=== PATIENT | male | born 1980 | race Two or more races ===

== ENCOUNTER 2020-08-19 14:21 | Emergency (ER) | payer SELFPAY ==
[~2020-08-19] VITALS: Ht 170.2 cm; Wt 80.0 kg
--- NOTE | 2020-08-19 14:36 | NUR ---
BIB [facility] FROM [facility]. PT HAD SEIZURE, PER SECURITY LASTED 20 SEC. PT STATES COMPLIANT WITH KEPPRA. ETOH YESTERDAY. DENIES TRAUMA. 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 CALL LIGHT IN REACH. SEIZURE PRECAUTIONS IN PLACE.
[2020-08-19] MEDS ORDERED: THIAMINE 100MG TABLET ONE (14:48)
[2020-08-19] MEDS ORDERED: THIAMINE 100MG TABLET PO ONE (15:00)
[2020-08-19 15:25] VITALS: BP 123/79
--- NOTE | 2020-08-19 15:27 | NUR ---
Patient given discharge instructions and they have confirmed that they understand the instructions. Patient ambulatory with steady gait.
== END 2020-08-19 15:28 | disposition home or self-care (01) ==
LOC: ED 14:44
DX: G40.409 Other generalized epilepsy and epileptic syndromes, not intractable, without status epilepticus (principal)
CPT/HCPCS: 93005; 99283